=== PATIENT | female | born 1965 | race Caucasian/White ===

== ENCOUNTER 2018-10-06 08:15 | Inpatient (IN) | payer BC, OTHER ==
[2018-10-05 12:51] VITALS: BMI 32.9
--- NOTE | 2018-10-06 09:39 | HP ---
History & Physical Update - Physical Physical: No Change (wants to have supracervical abdominal hysterectomy, BSO, RBA discussed) - Assessment Assessment: No Change - Plan Plan: No Change
[2018-10-06] MEDS ORDERED: BUPIVACAINE HCL/PF 0.25% (2.5MG/ML) 10 ML VIAL ONE ×2 (09:50→09:58)
[2018-10-06] MEDS ORDERED: MIDAZOLAM HCL 2 MG/2 ML SINGLE DOSE VIAL ONE ×4 (09:51→09:56)
[2018-10-06] MEDS ORDERED: SODIUM CHLORIDE 0.9% P/F 10 ML VIAL IJ ONE (09:52)
[2018-10-06] MEDS ORDERED: PROPOFOL 20 ML ONE (09:56)
[2018-10-06] MEDS ORDERED: ceFAZolin 2 GRAM PREMIX BAG IVPB ONE (10:19)
[2018-10-06] MEDS ORDERED: DEXAMETHASONE SOD PHOSPHATE 4 MG/1 ML VIAL ONE (10:34)
[2018-10-06] MEDS ORDERED: ceFAZolin SODIUM 1 GM VIAL IVPB ONE (11:02)
[2018-10-06] MEDS ORDERED: ceFAZolin SODIUM 1 GM VIAL ONE ×2 (11:03→17:20)
[2018-10-06] MEDS ORDERED: ROCURONIUM BROMIDE 50 MG/5 ML VIAL ONE (12:04)
[2018-10-06] MEDS ORDERED: GLYCOPYRROLATE 0.2 MG/1 ML VIAL ONE (12:19)
[2018-10-06] MEDS ORDERED: KETOROLAC TROMETHAMINE 30 MG/1 ML VIAL ONE (12:19)
[2018-10-06] MEDS ORDERED: NEOSTIGMINE METHYLSULFATE 0.5 MG/ML - 10 ML MDV ONE ×2 (12:21)
[2018-10-06] MEDS ORDERED: ONDANSETRON 4 MG/2 ML VIAL IVPUSH PRN ×2 (12:51→13:02)
[2018-10-06] MEDS ORDERED: ACETAMINOPHEN 1000 MG/100 ML VIAL (NON FORMULARY) IVPB ONE (12:52)
[2018-10-06] MEDS ORDERED: LACTATED RINGERS SOLUTION 1,000 ML IV SCH (13:00)
[2018-10-06] MEDS ORDERED: HYDROmorphone *PCA* 10MG/50ML DISP.SYRIN PCA SCH ×2 (13:00→15:33)
[2018-10-06] MEDS ORDERED: IBUPROFEN 800 MG/8 ML IJ IVPB PRN (13:02)
[2018-10-06] MEDS ORDERED: IBUPROFEN 600 MG TABLET (FP) PO PRN (13:02)
[2018-10-06] MEDS ORDERED: ELECTROLYTE-148 SOLN 1,000 ML IV SCH (13:15)
--- NOTE | 2018-10-06 14:38 | OP ---
DATE OF OPERATION: 10/06/2018 PREOPERATIVE DIAGNOSIS: Menorrhagia, pelvic pain, fibroid uterus. POSTOPERATIVE DIAGNOSIS: Menorrhagia, pelvic pain, fibroid uterus, endometriosis up to both ovaries. SURGEON: Ly Hensley MD DUMPER BULK SYSTEM: Jose Lindsay MD ANESTHESIA: General. ANESTHESIOLOGIST: Dr. Judd ESTIMATED BLOOD LOSS: 250 mL. DESCRIPTION OF PROCEDURE: The patient was taken to the operating room and had adequate general anesthesia. Abdomen and perineum were prepped and draped. Pfannenstiel abdominal skin incision was made. Abdominal wall was cut layer by layer until peritoneum was exposed and incised. Upon entering the abdominal cavity, upper abdomen was checked and was normal. Bowels were packed away. Uterus appeared to be enlarged with a posterior fibroid. Both ovaries were adherent to the cul-de-sac and also adherent to the colon bilaterally. Posterior cul-de-sac the uterosacral ligament was prominent and thick. Both ovaries were grasped with a Domenic clamp and with Metzenbaum scissors the ovary adhesions were lysed, and ovaries were freed. Then both round ligaments were grasped with bipolar LigaSure cautery cauterized and cut. Then anterior leaf of broad ligament was opened, and the bladder was pushed down. The infundibulopelvic ligament was identified bilaterally. A hole was made into the round ligament, and both infundibulopelvic ligament were clamped with Gala clamp, cut, and the clamp replaced with ties bilaterally. The bladder was further pushed down. The uterine artery was identified bilaterally, clamped with Gala clamp, cut, and the clamp replaced with 0 Vicryl suture bilaterally. Paracervical area was grasped with Gala clamp, cut, and the clamp replaced with 0 Vicryl suture bilaterally. At this time, the upper part of the cervix was reached and the uterus and adnexa were amputated from the cervix and then the cervix was sutured with interrupted suture of the 1 Vicryl [id number] suture. Hemostasis was established. Then pelvic cavity several times irrigated. No active bleeding was seen. Then both ureters were palpated and appeared to be normal grossly. Urine was clear. All of the lap pad, sponge count, and instrument counts were correct, and the peritoneum was closed with 0 Biosyn continuous suture. Muscles were brought together with interrupted suture of 0 Biosyn. Fascia was closed with 0 Biosyn continuous suture, subcutaneous fat with interrupted suture of 0 Biosyn, and the skin was closed with 3-0 subcuticular suture. The patient tolerated the procedure well and left the OR in good condition. LY HENSLEY M.D. [id number]
[2018-10-06] MEDS ORDERED: DEXTROSE 5%-WATER - 50 ML IVPB ONE (17:20)
[2018-10-06] MEDS: CEFAZOLIN 1 GM in DEXTROSE 5%-WATER - 50 ML IVPB SCH (17:40)
[2018-10-07] MEDS ORDERED: ceFAZolin SODIUM 1 GM VIAL ONE ×2 (01:22→10:06)
[2018-10-07] MEDS ORDERED: DEXTROSE 5%-WATER - 50 ML IVPB ONE ×2 (01:22→10:06)
[2018-10-07] MEDS: CEFAZOLIN 1 GM in DEXTROSE 5%-WATER - 50 ML IVPB SCH ×2 (01:25→10:10)
[2018-10-07] MEDS ORDERED: oxyCODONE HCL 5 MG TABLET PO PRN (07:32)
[2018-10-07] MEDS ORDERED: BISACODYL 10 MG SUPP.RECT PR PRN (07:38)
[2018-10-07 07:59] LABS: HEMATOCRIT 37.2 % (32.4-45.2); MCH 26.6 pg (25.7-33.7); MCHC 32.2 g/dl (32.0-36.0); MEAN CELL VOLUME 82.7 fl (80-96); MEAN PLT VOLUME 7.6 fl (7.5-11.1); PLATELET COUNT 295 K/MM3 (134-434); RDW 14.4 % (11.6-15.6)
[2018-10-07 08:39] LABS: ANION GAP 7 MMOL/L (8-16); BLOOD UREA NITROGEN 7 mg/dL (7-18); CALCIUM 8.7 mg/dL (8.5-10.1); CHLORIDE 104 mmol/L (98-107); CO2 28 mmol/L (21-32); CREATININE 0.4 mg/dL (0.55-1.3); GLUCOSE,RANDOM 110 mg/dL (74-106); POTASSIUM 3.8 mmol/L (3.5-5.1); SODIUM 138 mmol/L (136-145)
[2018-10-07] MEDS ORDERED: PCA PUMP KEY 1 EACH EACH ONE (09:37)
[2018-10-07] MEDS ORDERED: FLUVASTATIN PO SCH (10:00)
[2018-10-07] MEDS: SERTRALINE HCL 50 MG TABLET (FP) PO SCH (10:09)
[2018-10-07] MEDS: ENOXAPARIN NA (PORCINE) 40 MG/0.4 ML DISP.SYRIN SQ SCH (10:10)
[2018-10-07] MEDS: oxyCODONE HCL 5 MG TABLET PO PRN ×3 (11:31→19:59)
[2018-10-07] MEDS: ACETAMINOPHEN 325 MG TABLET (FP) PO PRN ×3 (11:31→19:59)
--- NOTE | 2018-10-07 14:48 | PN ---
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
[2018-10-07] MEDS: SIMETHICONE 80 MG TAB.CHEW (FP) PO PRN ×2 (16:00→19:58)
[2018-10-07 20:00] VITALS: PULSE 86
[2018-10-08] MEDS: SIMETHICONE 80 MG TAB.CHEW (FP) PO PRN ×3 (00:18→13:00)
[2018-10-08] MEDS: oxyCODONE HCL 5 MG TABLET PO PRN ×3 (00:18→12:58)
[2018-10-08] MEDS: ACETAMINOPHEN 325 MG TABLET (FP) PO PRN ×3 (00:18→12:59)
[2018-10-08 08:34] VITALS: BP 125/75; TEMP 98.5
[2018-10-08] MEDS: ENOXAPARIN NA (PORCINE) 40 MG/0.4 ML DISP.SYRIN SQ SCH (09:14)
[2018-10-08] MEDS: SERTRALINE HCL 50 MG TABLET (FP) PO SCH (09:14)
[2018-10-08] MEDS ORDERED: MAGNESIUM HYDROX 2400MG/30ML ORAL SUSPENSION 30 ML CUP PO ONE (11:00)
--- NOTE | 2018-10-08 13:42 | PN ---
Progress Note (short form) - Note Progress Note: 11 am pod 1, doing well , has mild incisional pain, , no vaginal bleeding, voided ok CBC, BMP 10/07/18 07:10 10/07/18 07:10 abdomen soft, no distension, no cva incision dry, cleqn no calf tenderness plan ambulate , advance diet pain management
--- NOTE | 2018-10-08 13:44 | PN ---
Progress Note (short form) - Note Progress Note: pod 2 passing gas , feels fine Last Vital Signs Temp Pulse Resp BP Pulse Ox 98.5 F 86 20 125/75 96 10/08/18 07:20 10/08/18 07:20 10/08/18 07:20 10/08/18 07:20 10/08/18 07:20 abdomen soft, no distension, no cva incision dry, clean no calf tenderness pod 2 afebrile doing well, plan dc home , follow up office 2 week instruction given
--- NOTE | 2018-10-08 13:47 | DS ---
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 Vital Signs: Vital Signs Temperature 98.5 F 10/08/18 07:20 Pulse Rate 86 10/08/18 07:20 Respiratory Rate 20 10/08/18 07:20 Blood Pressure 125/75 10/08/18 07:20 O2 Sat by Pulse Oximetry (%) 96 10/08/18 07:20 Constitutional: Yes: Well Nourished, No Distress, Calm Eyes: Yes: WNL, Conjunctiva Clear, EOM Intact HENT: Yes: WNL, Atraumatic, Normocephalic Neck: Yes: WNL, Supple, Trachea Midline Cardiovascular: Yes: WNL, Regular Rate and Rhythm Respiratory: Yes: WNL, Regular, CTA Bilaterally Gastrointestinal: Yes: WNL ...Rectal Exam: Yes: WNL Renal/: Yes: WNL External Genitalia: Yes: Normal Breast(s): Yes: WNL Musculoskeletal: Yes: WNL Extremities: Yes: WNL Edema: No Integumentary: Yes: WNL Wound/Incision: Yes: Clean/Dry, Well Approximated, Sutures Intact Neurological: Yes: WNL, Alert, Oriented ...Motor Strength: WNL Psychiatric: Yes: WNL, Alert, Oriented Labs: CBC, BMP 10/07/18 07:10 10/07/18 07:10 Discharge Summary Reason For Visit: FIBROIDS UTERUS, MENORRHAGIA Procedures: Principal: supracervical SAUNDRA, BSO, lysis of pelvic adhesions Condition: Good - Instructions Diet, Activity, Other Instructions: regular diet, ,no intercourse, follow up office 2 weeks, if severe pain, heavy vaginal bleeding, fever call MD Referrals: Vamshi Hensley MD [Staff Physician] - - Home Medications Comprehensive Discharge Medication List: Ambulatory Orders Cholecalciferol (Vitamin D3) [Vitamin D3] 1,000 unit PO DAILY 10/05/18 Fluvastatin Na [LESCOL (Nf) -] 20 mg PO DAILY 10/05/18 Sertraline HCl [Zoloft -] 50 mg PO DAILY 10/05/18 Calcium Carbonate [Calcium] 1,200 mg PO DAILY 10/06/18 Ibuprofen [Motrin -] 600 mg PO QID #28 tablet 10/08/18
--- NOTE | 2018-10-08 16:43 | PATH ---
Surgical Pathology Report Patient Name: DANYA TAVARES [facility]. Rec. 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 Specimen(s) Received A: RIGHT OVARY AND FALLOPIAN TUBE B: UTERUS, CERVIX, LEFT OVARY AND FALLOPIAN TUBE Clinical History Fibroid uterus, menorrhagia, pelvic pain Final Diagnosis A. FALLOPIAN TUBE AND OVARY, RIGHT, SALPINGO-OOPHORECTOMY: OVARY WITH FOLLICULAR AND HEMORRHAGIC CORPUS LUTEUM CYSTS. FALLOPIAN TUBE WITH ENDOSALPINGOSIS. B. UTERUS, OVARY AND FALLOPIAN TUBE, TOTAL ABDOMINAL HYSTERECTOMY AND LEFT SALPINGO-OOPHORECTOMY: LEIOMYOMA(TA). MYOMETRIUM WITH ADENOMYOSIS. PROLIFERATIVE ENDOMETRIUM. SCANT UNREMARKABLE ENDOCERVICAL MUCOSA. OVARY WITH HEMORRHAGIC CORPUS LUTEUM CYST. FALLOPIAN TUBE WITH FIBROUS ADHESIONS. Electronically Signed Shanda Reyes M.D. Gross Description A. Received in formalin labeled "right fallopian tube with ovary," is a 6 cm in length fimbriated fallopian tube. The outer surface is lopez calderon and smooth. Sectioning reveals an unremarkable lumen. There is a 2.0 x 1.7 x 0.8 cm ovary attached to the fallopian tube. The outer surface of the ovary is lopez-brown with a focal defect. Sectioning reveals hemorrhagic ovarian parenchyma. Crayon Painter sections are submitted in 4 cassettes as follows: 1-fimbria; 2-cross sections of fallopian tube; 3-4-ovary. B. Received in formalin labeled "left fallopian tube with ovary and uterus," is a 217 g supracervically amputated uterus with an attached left fallopian tube and left ovary. The specimen measures 7.5 cm from superior to inferior, 6.5 cm from left to right and 6.5 cm from anterior to posterior. The endometrial cavity measures 5.7 cm in length and 2.3 cm from cornu to cornu. There is a 3.5 cm in greatest dimension bulging submucosal nodule present at the anterior aspect. The endometrium is lopez-brown and measures up to 0.2 cm in thickness. There are multiple intramural nodules present, measuring up to 2 cm in greatest dimension. The cut surface of the submucosal and intramural nodules is lopez and rubbery with whorled architecture. No areas of hemorrhage or necrosis are identified. The remaining myometrium is lopez-pink and averages 3.1 cm in thickness. The left fimbriated fallopian tube measures 6 cm in length. The outer surface is lopez-nicole with focal adhesions. Sectioning reveals an unremarkable lumen. The left ovary measures 2.0 x 1.2 x 0.7 cm. The outer surface is lopez-yellow, convoluted and smooth. Sectioning reveals a 0.9 cm greatest dimension hemorrhagic corpus luteum. The remaining ovarian parenchyma is lopez and unremarkable. Crayon Painter sections are submitted in 11 cassettes as follows: 1-cervical stump margin of resection; 3-8-lxekqdik endometrium with submucosal nodule; 4-additional anterior endomyometrium; 3-7-lczamxxhw endomyometrium; 7-4-cxapjiahks nodules; 9-left fallopian tube fimbria; 10-cross sections of left fallopian tube; 11-left ovary. 10/07/2018 [facility]
== END 2018-10-08 14:05 | disposition home or self-care (01) | DRG 743 ==
LOC: JSAMEDAYSX 08:15 → J3W 15:01
PROVIDERS: ADMIT Obstetrics & Gynecology; ATTEND Obstetrics & Gynecology
PROC: 0UT20ZZ Resection of Bilateral Ovaries, Open Approach (ICD-10-PCS; 2018-10-06)
PROC: 0UT70ZZ Resection of Bilateral Fallopian Tubes, Open Approach (ICD-10-PCS; 2018-10-06)
PROC: 0UT90ZZ Resection of Uterus, Open Approach (ICD-10-PCS; principal; 2018-10-06 09:00)
DX: D25.9 Leiomyoma of uterus, unspecified (principal); N80.1 Endometriosis of ovary; N73.6 Female pelvic peritoneal adhesions (postinfective); J45.909 Unspecified asthma, uncomplicated; K21.9 Gastro-esophageal reflux disease without esophagitis; Z87.891 Personal history of nicotine dependence
CPT/HCPCS: 36415; 71046-TC-FY; 80048; 84703; 85027; 86850; 86900; 86901; 88305-TC; 88307-TC; 94760; J0131